=== PATIENT | female | born 1990 | race Two or more races ===

== ENCOUNTER 2017-09-12 18:48 | Emergency (ER) | payer SELFPAY ==
[~2017-09-12] VITALS: Ht 157.5 cm; Wt 115.7 kg
[~2017-09-12 18:48] MED LIST: CIPROFLOXACIN500 M2 ORAL; DIFLUCAN150 MG PO
[2017-09-12 19:40] VITALS: BP 102/70
[2017-09-12 20:32] LABS: BILIRUBIN, URINE NEGATIVE (NEGATIVE); COLOR,URINE PALE YELLOW; GLUCOSE, URINE (UA) NEGATIVE (NEGATIVE); KETONES,URINE 1+ (NEGATIVE); LEUKOCYTE ESTERASE ,URINE 3+ (NEGATIVE); NITRITE,URINE NEGATIVE (NEGATIVE); PH,URINE 6.5 (4.5-8.0); PROTEIN,URINE 1+ (NEGATIVE); UROBILINOGEN,URINE NORMAL MG/DL (0.0-1.0)
[2017-09-12 20:36] LABS: APPEARANCE,URINE SLIGHTLY CLOUDY
--- NOTE | 2017-09-12 20:41 | Emergency Room Report ---
History of Present Illness General Chief Complaint: General Complaint Source: Patient, Medical Record Present Illness HPI 26-year-old female presents to the emergency department complaining of 10 out of 10 in severity pelvic pain and tenderness with "something sticking out of her " patient states that a few weeks ago she went to an STD clinic and was tested and told she doesn't have anything. Patient denies fevers, chills, nausea or vomiting she denies . She denies vaginal discharge, vaginal bleeding or unilateral adnexal tenderness. Patient reports she has dysuria and denies hematuria, frequency or urgency. Patient reports that her pelvic area feels very "bloated". Denies constipation or diarrhea. She states that for the past 2 weeks she's been having dyspareunia to the point where she has to stop mid-activity. reports hx of G&C in the past. Denies vaginal lesions/ rashes. Denies CP, Palpitations, LOC, AMS, dizziness, Changes in Vision, Sensation, paresthesias, or a sudden severe headache. Allergies: Coded Allergies: AMOXICILLIN (Unverified Allergy, Unknown, 11/24/14) Patient History Past Medical History: see triage record Past Surgical History: none Pertinent Family History: none Last Menstrual Period: 06/15 Now: No Reviewed Nursing Documentation: PMH: Agreed; PSxH: Agreed Nursing Documentation-PMH Past Medical History: No History, Except For Hx Asthma: Yes Review of Systems All Other Systems: negative except mentioned in HPI Physical Exam Vital Signs Date Time Temp Pulse Resp B/P (MAP) Pulse Ox O2 Delivery O2 Flow Rate FiO2 09/12/17 18:52 98.0 96 20 94/69 95 Room Air 98.1 Sp02 EP Interpretation: reviewed, normal General Appearance: alert, GCS 15, non-toxic, moderate distress Head: normocephalic, atraumatic ENT: hearing grossly normal, normal voice Neck: full range of motion Respiratory: lungs clear, normal breath sounds, speaking full sentences Cardiovascular #1: regular rate, rhythm Gastrointestinal: normal bowel sounds, non tender, soft Rectal: deferred Genitourinary: normal inspection, no CVA tenderness, ext genitalia/vag normal - no lesions, other - prominently visualized intrapelvic organs suspect cervix on exam with out need of insertion of speculum. severe tenderness on exam.Thin white watery vaginal discharge is noted. Speculum is deferred due to pain. Musculoskeletal: back normal, gait/station normal, normal range of motion, non- tender Neurologic: alert, oriented x3, responsive, motor strength/tone normal, sensory intact, speech normal, grossly normal Psychiatric: judgement/insight normal Skin: normal color, no rash, warm/dry, well hydrated Medical Decision Making PA Attestation Dr. Kang is my supervising Physician whom patient management has been discussed with. Diagnostic Impression: Primary Impression: Pelvic pain Additional Impressions: Cervical prolapse Trichomonal leukorrhea vaginalis Bacterial vaginitis ER Course 26-year-old female presents to the emergency department complaining of 10 out of 10 in severity pelvic pain and tenderness with "something sticking out of her " patient states that a few weeks ago she went to an STD clinic and was tested and told she doesn't have anything. Patient denies fevers, chills, nausea or vomiting she denies . She denies vaginal discharge, vaginal bleeding or unilateral adnexal tenderness. Patient reports she has dysuria and denies hematuria, frequency or urgency. Patient reports that her pelvic area feels very "bloated". Denies constipation or diarrhea. She states that for the past 2 weeks she's been having dyspareunia to the point where she has to stop mid-activity. reports hx of G&C in the past. Denies vaginal lesions/ rashes. Denies CP, Palpitations, LOC, AMS, dizziness, Changes in Vision, Sensation, paresthesias, or a sudden severe headache. Ddx considered but are not limited to prolapse uterus/cervix, PID, Bartholin's gland cyst, nabothian glances, STD or just to name a few. Vital signs: are WNL, pt. is afebrile H&PE are most consistent with cervical prolapse and possibly PID due to severe tenderness on exam.Thin white watery vaginal discharge is noted. ORDERS: -UA: Elevated inflammatory markers however few bacteria an equal amount squamous not indicating urinary infection at this time. I suspect that this elevation and inflammatory markers is due to the thin white discharge contamination that I noticed on physical exam. -Urine HCg: Negative -Wet Mount: Positive for clue cells, Trichomonas, and bacteria, no yeast ED INTERVENTIONS: -Oral pain medication -Diflucan 150 mg orally -Rocephin IM --- DATABASE TECHNICIAN consult. Dr. Lainez recommended OBGYN F/U outpatient, and treat for positives of wet mount, and cover for G&C. requested G&C Culture. So recommended prescription for Diflucan since she will be prescribed several antibiotics. DISCHARGE: At this time pt. is stable for d/c to home. Will provide printed patient care instructions, and any necessary prescriptions. Care plan and follow up instructions have been discussed with the patient prior to discharge. Labs Test 09/12/17 20:00 Urine Color Pale yellow Urine Appearance Slightly cloudy Urine pH 6.5 (4.5-8.0) Urine Specific [place] 1.010 (1.005-1.035) Urine Protein 1+ (NEGATIVE) Urine Glucose (UA) Negative (NEGATIVE) Urine Ketones 1+ (NEGATIVE) Urine Occult Blood 2+ (NEGATIVE) Urine Nitrite Negative (NEGATIVE) Urine Bilirubin Negative (NEGATIVE) Urine Urobilinogen Normal MG/DL (0.0-1.0) Urine Leukocyte Esterase 3+ (NEGATIVE) Urine RBC 2-4 /HPF (0 - 2) Urine WBC 5-10 /HPF (0 - 2) Urine Squamous Epithelial Cells Few /LPF (NONE/OCC) Urine Bacteria Few /HPF (NONE) Urine HCG, Qualitative Negative (NEGATIVE) Last Vital Signs Date Time Temp Pulse Resp B/P (MAP) Pulse Ox O2 Delivery O2 Flow Rate FiO2 09/12/17 19:40 98.2 82 18 102/70 97 Room Air 98.2 Disposition: HOME, SELF-CARE Condition: Serious Physician Consult: Dr. Lainez Scripts Fluconazole (FLUCONAZOLE) 100 Mg Tablet 100 MG ORAL DAILY for 2 Days, #2 TAB 0 Refills Prov: Jyoti Rodgers P.A. 09/12/17 Doxycycline Hyclate* (VIBRAMYCIN*) 100 Mg Capsule 100 MG ORAL EVERY 12 HOURS for 14 Days, #28 CAP 0 Refills Prov: Jyoti Rodgers P.A. 09/12/17 Metronidazole* (FLAGYL*) 500 Mg Tablet 500 MG ORAL BID for 7 Days, #14 TAB 0 Refills Prov: Jyoti Rodgers P.A. 09/12/17 Referrals: NOT CHOSEN [facility]/,REFERRING (PCP) JEN LAINEZ Patient Instructions: Bacterial Vaginosis, [id number], Pelvic Organ Prolapse , Trichomonas Test Additional Instructions: Take medications as directed. Follow up with a OBGYN within 3 days, even if your symptoms have resolved. Return sooner to ED if new symptoms occur, or current symptoms become worse. - Please note that this Emergency Department Report was dictated using [employer] supervisor technology software, occasionally this can lead to erroneous entry secondary to interpretation by the dictation equipment. Jyoti Rodgers Sep 12, 2017 20:41
[2017-09-12 20:45] VITALS: BP 107/76
[2017-09-12] MEDS ORDERED: oxyCODONE HCL/Acetaminophen 5/325mg ORAL ONE (21:00)
[2017-09-12] MEDS ORDERED: VIBRAMYCIN100 MG ORAL (21:22)
[2017-09-12] MEDS ORDERED: FLUCONAZOLE100 MG ORAL (21:22)
[2017-09-12] MEDS ORDERED: METRONIDAZOLE500 MG ORAL (21:22)
[2017-09-12] MEDS ORDERED: Lidocaine 1% MPF 10mg/ml 5ml INJ ONE (21:30)
[2017-09-12] MEDS ORDERED: Fluconazole 100mg tab ORAL ONE (21:30)
[2017-09-12 21:45] VITALS: BP 107/76
== END 2017-09-12 21:45 | disposition home or self-care (01) ==
LOC: EMR 19:16
DX: R10.2 Pelvic and perineal pain (principal); N81.2 Incomplete uterovaginal prolapse; N89.8 Other specified noninflammatory disorders of vagina; N76.0 Acute vaginitis; B96.89 Other specified bacterial agents as the cause of diseases classified elsewhere; Z88.0 Allergy status to penicillin
CPT/HCPCS: 81003; 81025; 87210; 96372; 99284; J0696

== ENCOUNTER 2018-02-13 08:29 | Emergency (ER) | payer SELFPAY ==
[~2018-02-13] VITALS: Ht 157.5 cm; Wt 115.2 kg
[~2018-02-13 08:29] MED LIST changes: +FLUCONAZOLE100 MG ORAL; +METRONIDAZOLE500 MG ORAL; +VIBRAMYCIN100 MG ORAL
[2018-02-13] MEDS ORDERED: Albuterol ud Inhalation HHN ONE (09:15)
[2018-02-13 09:30] LABS: APPEARANCE,URINE CLOUDY; BILIRUBIN, URINE NEGATIVE (NEGATIVE); GLUCOSE, URINE (UA) NEGATIVE (NEGATIVE); KETONES,URINE NEGATIVE (NEGATIVE); LEUKOCYTE ESTERASE ,URINE 3+ (NEGATIVE); NITRITE,URINE NEGATIVE (NEGATIVE); PH,URINE 5 (4.5-8.0); PROTEIN,URINE 1+ (NEGATIVE); UROBILINOGEN,URINE NORMAL MG/DL (0.0-1.0)
[2018-02-13 09:35] LABS: COLOR,URINE YELLOW
--- NOTE | 2018-02-13 09:56 | Emergency Room Report ---
History of Present Illness General Chief Complaint: Flu Like Symptoms Source: Patient Present Illness HPI This patient has a history of asthma. She states that when she gets respiratory illnesses she gets asthma exacerbations. She states that for the past 3 days she has had bodyaches, chills, cough and shortness of breath. She denies abdominal pain. She has had diarrhea. She states that she hasn't been worked in 3 days. She states she feels terrible. She has no other complaints. Allergies: Coded Allergies: AMOXICILLIN (Unverified Allergy, Unknown, 11/24/14) CEFACLOR (Verified Allergy, Unknown, 02/13/18) Patient History Past Medical History: see triage record, asthma Social History: Denies: smoking, alcohol use, drug use Last Menstrual Period: 01/23/2018 Now: No : 0 Para: 0 Reviewed Nursing Documentation: PMH: Agreed; PSxH: Agreed Nursing Documentation-PMH Past Medical History: No History, Except For Hx Asthma: Yes Review of Systems All Other Systems: negative except mentioned in HPI Physical Exam Vital Signs Date Time Temp Pulse Resp B/P (MAP) Pulse Ox O2 Delivery O2 Flow Rate FiO2 02/13/18 08:36 98.7 92 18 118/66 98 Room Air 98.8 02/13/18 09:31 21 Sp02 EP Interpretation: reviewed, normal General Appearance: no apparent distress, alert, GCS 15, non-toxic Head: normocephalic, atraumatic Eyes: bilateral eye normal inspection, bilateral eye PERRL ENT: hearing grossly normal, normal pharynx, no angioedema, normal voice Neck: full range of motion, supple/symm/no masses Respiratory: chest non-tender, no respiratory distress, no retraction, no accessory muscle use, speaking full sentences, wheezing - mild expiratory wheezes. Cardiovascular #1: regular rate, rhythm, no edema Rectal: deferred Musculoskeletal: back normal, gait/station normal, normal range of motion, non- tender Neurologic: alert, oriented x3, responsive, motor strength/tone normal, sensory intact, speech normal Psychiatric: judgement/insight normal, memory normal, mood/affect normal, no suicidal/homicidal ideation Skin: normal color, no rash, warm/dry, well hydrated Medical Decision Making Diagnostic Impression: Primary Impression: URI (upper respiratory infection) Additional Impressions: Asthma exacerbation UTI (urinary tract infection) ER Course This patient has a clinical presentation consistent with asthma exacerbation. Patient has a history of asthma and has wheezing on physical exam. The patient was given albuterol and Atrovent nebulizer treatments. The patient was also given prednisone orally. The patient had significant improvement in subjective shortness of breath. The patient's lung exam improved significantly. The patient's urinalysis was also positive for infection. Also of concern, was the identification of Trichomonas in the urine. Given the identification of Trichomonas, this patient is high risk for gonorrhea or chlamydia as a source of her infection. I decided to treat this patient presumptively with Rocephin, azithromycin and Flagyl. I will go ahead and treat her with a course of Macrobid also for a regular urinary tract infection. The patient was educated that she could be reinfected if she continues at the same partner. She is also instructed to obtain testing for HIV and syphilis at an outpatient clinic. The patient was given close return precautions and followup instructions. Laboratory Tests Test 02/13/18 09:15 Urine Color Yellow Urine Appearance Cloudy Urine pH 5 (4.5-8.0) Urine Specific [place] 1.015 (1.005-1.035) Urine Protein 1+ (NEGATIVE) H Urine Glucose (UA) Negative (NEGATIVE) Urine Ketones Negative (NEGATIVE) Urine Blood 1+ (NEGATIVE) H Urine Nitrite Negative (NEGATIVE) Urine Bilirubin Negative (NEGATIVE) Urine Urobilinogen Normal MG/DL (0.0-1.0) Urine Leukocyte Esterase 3+ (NEGATIVE) H Urine RBC 5-10 /HPF (0 - 2) H Urine WBC 30-40 /HPF (0 - 2) H Urine Squamous Epithelial Cells Moderate /LPF (NONE/OCC) H Urine Amorphous Sediment Few /LPF (NONE) H Urine Bacteria Moderate /HPF (NONE) H Urine Mucus Few /LPF (NONE/OCC) H Urine Trichomonas Few /HPF (NONE) H Urine HCG, Qualitative Negative (NEGATIVE) Chest X-Ray Diagnostic Results Chest X-Ray Diagnostic Results : Chest X-Ray Ordered: Yes # of Views/Limited/Complete: 1 View Indication: Other - cough EP Interpretation: No Interpretation: no consolidation, no effusion, no pneumothorax, no acute cardiopulmonary disease Impression: No acute disease Electronically Signed by: Sheeba Last Vital Signs Date Time Temp Pulse Resp B/P (MAP) Pulse Ox O2 Delivery O2 Flow Rate FiO2 9/18/18 09:41 85 20 100 Room Air 21 02/13/18 08:36 98.7 118/66 98.8 Status: improved Disposition: HOME, SELF-CARE Condition: Improved Referrals: NOT CHOSEN [facility]/,REFERRING (PCP) Fadumo Centeno DO Feb 13, 2018 09:56
[2018-02-13] MEDS ORDERED: Azithromycin 250mg tab ORAL ONE (10:00)
[2018-02-13] MEDS ORDERED: metroNIDAZOLE 500mg tab ORAL ONE (10:00)
[2018-02-13] MEDS ORDERED: FLUCONAZOLE100 MG ORAL (10:02)
[2018-02-13] MEDS ORDERED: DOXYCYCLINE MO100 MG ORAL (10:02)
[2018-02-13] MEDS ORDERED: NITROFURANTOIN100 M2 ORAL (10:02)
[2018-02-13 10:21] VITALS: BP 120/69
[2018-02-13 10:31] VITALS: BP 120/69
--- NOTE | 2018-02-13 10:59 | Diagnostic Imaging Report ---
. Indication: Cough Technique: One view of the chest Comparison: none Findings: Body habitus limits evaluation. The heart is borderline enlarged. Inspiration is suboptimal. Lungs and pleural spaces are clear. Impression: No acute process Apparent cardiomegaly, probably on the basis of suboptimal inspiration and patient body habitus, but true cardiac enlargement not completely excludable. Correlate with clinical history and findings
== END 2018-02-13 11:02 | disposition home or self-care (01) ==
LOC: EMR 08:56
DX: J45.901 Unspecified asthma with (acute) exacerbation (principal); N39.0 Urinary tract infection, site not specified; J06.9 Acute upper respiratory infection, unspecified; Z88.1 Allergy status to other antibiotic agents; Z88.8 Allergy status to other drugs, medicaments and biological substances
CPT/HCPCS: 71045; 81003; 81025; 87086; 94640; 99284; J7512

== ENCOUNTER 2018-04-09 19:15 | Emergency (ER) | payer SELFPAY ==
[~2018-04-09] VITALS: Ht 162.6 cm; Wt 115.2 kg
[~2018-04-09 19:15] MED LIST changes: +DOXYCYCLINE MO100 MG ORAL; +NITROFURANTOIN100 M2 ORAL
[2018-04-09 20:00] LABS: APPEARANCE,URINE CLEAR; BILIRUBIN, URINE NEGATIVE (NEGATIVE); COLOR,URINE PALE YELLOW; GLUCOSE, URINE (UA) NEGATIVE (NEGATIVE); KETONES,URINE NEGATIVE (NEGATIVE); LEUKOCYTE ESTERASE ,URINE 1+ (NEGATIVE); NITRITE,URINE NEGATIVE (NEGATIVE); PH,URINE 7 (4.5-8.0); PROTEIN,URINE NEGATIVE (NEGATIVE); UROBILINOGEN,URINE NORMAL MG/DL (0.0-1.0)
[2018-04-09 20:09] VITALS: BP 114/77
[2018-04-09] MEDS ORDERED: Clindamycin 150mg cap ORAL STA (22:08)
--- NOTE | 2018-04-09 22:08 | Emergency Room Report ---
History of Present Illness General Chief Complaint: Female Urogenital Problems Source: Patient Present Illness HPI Patient with vaginal discharge. She believes this is trichomonas - "again". She was treated for trich with Rx for flagyl which she could not fill until being seen at another clinic. Now recently finished course and has similar symptoms of itchiness, d/c and discomfort rated 8/10. No dysuria. Discomfort localized. No meds taken other than Flagyl. Partner was also treated. LNMP 03/29. No NVD, abdominal pain, flank pain. No URI sy, rashes. Allergies: Coded Allergies: AMOXICILLIN (Unverified Allergy, Unknown, 11/24/14) CEFACLOR (Verified Allergy, Unknown, 02/13/18) Patient History Past Medical History: see triage record Social History: Reports: smoking Social History Narrative stable relationship Last Menstrual Period: 03/29/18 Reviewed Nursing Documentation: PMH: Agreed; PSxH: Agreed Nursing Documentation-PMH Past Medical History: No History, Except For Hx Asthma: Yes Review of Systems All Other Systems: negative except mentioned in HPI Physical Exam Vital Signs Date Time Temp Pulse Resp B/P (MAP) Pulse Ox O2 Delivery O2 Flow Rate FiO2 04/09/18 19:27 99.0 89 16 112/79 98 Room Air Sp02 EP Interpretation: reviewed, normal General Appearance: well appearing, no apparent distress Head: normocephalic, atraumatic Eyes: bilateral eye normal inspection, bilateral eye PERRL ENT: hearing grossly normal, normal voice Neck: full range of motion, supple Respiratory: no respiratory distress, speaking full sentences Gastrointestinal: normal inspection, normal bowel sounds, non tender, soft, overweight Genitourinary: no CVA tenderness, cervix normal, urethra normal, other - exophytic tissue (hymen) Musculoskeletal: back normal, gait/station normal, normal range of motion Neurologic: alert, oriented x3, normal gait, grossly normal Psychiatric: mood/affect normal Skin: no rash Medical Decision Making Diagnostic Impression: Primary Impression: Bacterial vaginosis ER Course Patient with vaginal discharge. DDX: trich, BV, yeast amongst others. Need to exclude UTI. Wet mount with clue cells, no trich or yeast. Discussed findings and treatment plan. Patient stable for outpatient observation and treatment. Laboratory Tests Test 04/09/18 19:49 Urine Color Pale yellow Urine Appearance Clear Urine pH 7 (4.5-8.0) Urine Specific [place] 1.010 (1.005-1.035) Urine Protein Negative (NEGATIVE) Urine Glucose (UA) Negative (NEGATIVE) Urine Ketones Negative (NEGATIVE) Urine Blood Negative (NEGATIVE) Urine Nitrite Negative (NEGATIVE) Urine Bilirubin Negative (NEGATIVE) Urine Urobilinogen Normal MG/DL (0.0-1.0) Urine Leukocyte Esterase 1+ (NEGATIVE) H Urine RBC 0-2 /HPF (0 - 2) Urine WBC 2-4 /HPF (0 - 2) Urine Squamous Epithelial Cells Few /LPF (NONE/OCC) Urine Bacteria Few /HPF (NONE) Urine HCG, Qualitative Negative (NEGATIVE) Microbiology Date/Time Source Procedure Growth Status 04/09/18 20:40 Vaginal Wet Prep - Final Complete Last Vital Signs Date Time Temp Pulse Resp B/P (MAP) Pulse Ox O2 Delivery O2 Flow Rate FiO2 04/09/18 22:24 98.7 79 16 114/77 98 Room Air Status: improved Disposition: HOME, SELF-CARE Condition: Improved Scripts Clindamycin Hcl (CLINDAMYCIN HCL) 300 Mg Capsule 300 MG ORAL BID, #14 CAP Prov: Ata Jefferson MD 04/09/18 Ata Jefferson MD Apr 09, 2018 22:08
[2018-04-09] MEDS ORDERED: CLINDAMYCIN HC300 MG ORAL (22:10)
[2018-04-09 22:24] VITALS: BP_SYST 114; BP_SYST 118; BP_DIAS 74; BP_DIAS 77
== END 2018-04-09 22:22 | disposition home or self-care (01) ==
LOC: EMR 19:49
DX: N76.0 Acute vaginitis (principal); B96.89 Other specified bacterial agents as the cause of diseases classified elsewhere; J45.909 Unspecified asthma, uncomplicated; Z88.0 Allergy status to penicillin
CPT/HCPCS: 81003; 81025; 87210; 99283

== ENCOUNTER 2018-09-04 03:19 | Emergency (ER) | payer OTHER ==
[~2018-09-04] VITALS: Ht 157.5 cm; Wt 117.9 kg
[~2018-09-04 03:19] MED LIST changes: +CLINDAMYCIN HC300 MG ORAL
[2018-09-04] MEDS ORDERED: NKM (03:28)
--- NOTE | 2018-09-04 03:31 | NUR ---
ED Nurse Note: Received with mild distress. Lung sounds clear and equal.
[2018-09-04 03:35] VITALS: BP 104/76
[2018-09-04] MEDS ORDERED: ZITHROMAX250 MG ORAL (03:50)
[2018-09-04] MEDS ORDERED: ALBUTEROL SULF8.5 GM INH (03:50)
--- NOTE | 2018-09-04 03:50 | Emergency Room Report ---
History of Present Illness General Chief Complaint: Fever Source: Patient Present Illness HPI Is a 27-year-old female with history of asthma. She presents with chief complaint of fever and sinus pain. Onset for last 2 days. No nausea no vomiting. Body aches. Which are 101.7 at home. Took a couple of Advil before coming. No cough or congestion. No urinary complaint. Allergies: Coded Allergies: AMOXICILLIN (Unverified Allergy, Unknown, 11/24/14) CEFACLOR (Verified Allergy, Unknown, 02/13/18) Patient History Past Medical History: see triage record, old chart reviewed Past Surgical History: none Pertinent Family History: none Social History: Denies: smoking Last Menstrual Period: 08/15/18 Now: No Immunizations: other Reviewed Nursing Documentation: PMH: Agreed; PSxH: Agreed Nursing Documentation-PMH Hx Asthma: Yes Review of Systems Constitutional: Reports: fever, malaise Eye: Denies: eye pain, blurred vision ENT: Denies: ear pain, nose congestion, throat swelling Respiratory: Denies: cough, shortness of breath Cardiovascular: Denies: chest pain, palpitations Gastrointestinal: Denies: abdominal pain, diarrhea, nausea, vomiting Musculoskeletal: Denies: back pain, joint pain Skin: Denies: rash Neurological: Denies: headache, numbness Endocrine: Denies: increased thirst, increased urine Hematologic/Lymphatic: Denies: easy bruising All Other Systems: negative except mentioned in HPI Physical Exam Vital Signs Date Time Temp Pulse Resp B/P (MAP) Pulse Ox O2 Delivery O2 Flow Rate FiO2 09/04/18 03:24 99.0 96 16 104/76 95 Room Air vitals unremarkable Sp02 EP Interpretation: reviewed, normal General Appearance: well appearing, no apparent distress, alert Head: normocephalic, atraumatic Eyes: bilateral eye PERRL, bilateral eye EOMI ENT: hearing grossly normal, normal pharynx, other - Maxillary sinus tenderness Neck: full range of motion, supple, no meningismus Respiratory: chest non-tender, lungs clear, normal breath sounds Cardiovascular #1: regular rate, rhythm, no murmur Gastrointestinal: normal bowel sounds, non tender, no mass, no organomegaly, no bruit, non-distended Musculoskeletal: back normal, gait/station normal, normal range of motion Psychiatric: mood/affect normal Skin: warm/dry Medical Decision Making Diagnostic Impression: Primary Impression: Sinusitis, acute maxillary Qualified Codes: J01.00 - Acute maxillary sinusitis, unspecified Additional Impression: Fever Qualified Codes: R50.9 - Fever, unspecified ER Course She with fever and sinus tenderness. This is most likely viral in nature. Put her on antibiotics because of the tenderness. No risk factors to indicate this is fungal infection. Lungs are otherwise clear. No wheezing. She needs refill on her albuterol. She looks well. No evidence of any sepsis, meningitis , pneumonia to name a few. I doubt this is influenza. Last Vital Signs Date Time Temp Pulse Resp B/P (MAP) Pulse Ox O2 Delivery O2 Flow Rate FiO2 09/04/18 03:35 99.0 16 104/76 95 Room Air 09/04/18 03:32 96 Status: improved Disposition: HOME, SELF-CARE Condition: Stable Scripts Azithromycin* (ZITHROMAX*) 250 Mg Tablet 250 MG ORAL DAILY, #6 TAB 0 Refills Take two tables once daily for 1 day, then one tablet once daily for 4 days. Prov: Zander Pinzon MD 09/04/18 Albuterol Sulfate* (ALBUTEROL SULFATE MDI*) 8.5 Gm Hfa.aer.ad 2 PUFF INH Q4H PRN for cough/wheezing, #1 EA 0 Refills Prov: Zander Pinzon MD 09/04/18 Referrals: [facility],REFERRING (PCP) Additional Instructions: Follow-up with your doctor in 7 days. Continue with ibuprofen for fever and pain. Return if worse. Zander Pinzon MD Sep 04, 2018 03:50
[2018-09-04 03:56] VITALS: BP 104/76
[2018-09-05] MEDS ORDERED: IBUPROFEN600 MG ORAL (15:59)
[2018-09-05] MEDS ORDERED: ONDANSETRON ODT4 MG BC (15:59)
== END 2018-09-04 03:57 | disposition home or self-care (01) ==
LOC: EMR 03:42
DX: J01.00 Acute maxillary sinusitis, unspecified (principal); R50.9 Fever, unspecified; Z88.0 Allergy status to penicillin; Z88.8 Allergy status to other drugs, medicaments and biological substances
CPT/HCPCS: 99282

== ENCOUNTER 2018-09-05 11:21 | Emergency (ER) | payer OTHER ==
[~2018-09-05] VITALS: Ht 157.5 cm; Wt 122.0 kg
[~2018-09-05 11:21] MED LIST changes: +ALBUTEROL SULF8.5 GM INH; +NKM; +ZITHROMAX250 MG ORAL
[2018-09-05 11:25] VITALS: BP 103/81
--- NOTE | 2018-09-05 11:32 | NUR ---
Note ping in EDM - 09/05/18 at 1135 by ANTONELLA ED Nurse Note: Patient walked into ED from home c/o fever. per patient she had 101.5F all night long. patient reports bodyaches, sweating, nausea, congestion for 4 days. patient denies any vomiting or diarrhea. patient is alert awake x4 ambulatory, patient's friend with him.
--- NOTE | 2018-09-05 11:32 | NUR ---
ED Nurse Note: Patient walked into ED from home c/o fever. per patient she had 101.5F all night long. patient reports bodyaches, sweating, nausea, congestion for 4 days. patient denies any vomiting or diarrhea. patient is alert awake x4 ambulatory, patient's friend with her at this time.
[2018-09-05] MEDS ORDERED: Metoclopramide 10mg/2ml Inj IVP ONE (12:15)
[2018-09-05] MEDS ORDERED: DiphenhydrAMINE 50mg/ml Inj IVP ONE (12:15)
--- NOTE | 2018-09-05 12:59 | NUR ---
ED Nurse Note: Pt could not provide urine due to dehydration. ERMD made aware.
[2018-09-05 13:11] LABS: BASOPHILS % (AUTO) 0.8 % (0.0-2.0); HEMATOCRIT 40.2 % (37.0-47.0); HEMOGLOBIN 13.1 G/DL (12.0-16.0); LYMPHOCYTES % (AUTO) 13.5 % (20.0-45.0); MEAN CORPUSCULAR VOLUME 77 FL (80-99); MONOCYTES % (AUTO) 8.8 % (1.0-10.0); NEUTROPHILS % (AUTO) 76.8 % (45.0-75.0); PLATELET COUNT 260 K/UL (150-450); RED BLOOD COUNT 5.25 M/UL (4.20-5.40); RED CELL DISTRIBUTION WIDTH 13.7 % (11.6-14.8)
[2018-09-05 13:16] LABS: INR 1.1 (0.9-1.1)
[2018-09-05 13:21] LABS: ANION GAP 14 mmol/L (5-15); BLOOD UREA NITROGEN 8 mg/dL (7-18); CALCIUM 8.9 MG/DL (8.5-10.1); CARBON DIOXIDE 25 MMOL/L (21-32); CHLORIDE 99 MMOL/L (98-107); CREATININE 0.8 MG/DL (0.55-1.30); POTASSIUM 3.8 MMOL/L (3.5-5.1); SODIUM 138 MMOL/L (136-145)
[2018-09-05 13:26] LABS: ALANINE AMINOTRANSFERASE 14 U/L (12-78); ALBUMIN 3.8 G/DL (3.4-5.0); ALBUMIN/GLOBULIN RATIO 0.8 (1.0-2.7); ALKALINE PHOSPHATASE 79 U/L (46-116); ASPARTATE AMINO TRANSFERASE 13 U/L (15-37); BILIRUBIN,TOTAL 0.4 MG/DL (0.2-1.0); CREATINE KINASE 51 U/L (26-308)
[2018-09-05 13:57] VITALS: BP 102/67
--- NOTE | 2018-09-05 14:41 | NUR ---
ED Nurse Note: 2nd urine sent to lab
[2018-09-05 14:46] LABS: APPEARANCE,URINE CLEAR; BILIRUBIN, URINE NEGATIVE (NEGATIVE); COLOR,URINE PALE YELLOW; GLUCOSE, URINE (UA) NEGATIVE (NEGATIVE); KETONES,URINE NEGATIVE (NEGATIVE); LEUKOCYTE ESTERASE ,URINE 1+ (NEGATIVE); NITRITE,URINE NEGATIVE (NEGATIVE); PH,URINE 5 (4.5-8.0); PROTEIN,URINE NEGATIVE (NEGATIVE); UROBILINOGEN,URINE NORMAL MG/DL (0.0-1.0)
--- NOTE | 2018-09-05 15:26 | Emergency Room Report ---
History of Present Illness General Chief Complaint: Flu Like Symptoms Source: Patient Present Illness HPI Patient presents after being seen steam shovelman on the for sinusitis. She was started on azithromycin at that time. She started having vomiting and diarrhea this persisted. She also has muscle aches at this time. She's been unable to keep down fluids. She doesn't believe she is at this time. No flu vaccination. She denies wheezes. She feels weak when she stands up and feels dehydrated. No rashes. The sinus pain is improved somewhat. Denies neck stiffness. She does have lower back pain. The pain is rated 10/10 and generalized but slightly more in her lower back. The diarrhea is loose and brown in color without blood. She denies vaginal discharge. Her temperature was 101.5 last night. She took Tylenol and had some improvement. The fever persisted to today. The family history of meningitis and she is concerned about this. Allergies: Coded Allergies: AMOXICILLIN (Unverified Allergy, Unknown, 09/05/18) CEFACLOR (Verified Allergy, Unknown, 09/05/18) Patient History Past Medical History: see triage record, old chart reviewed Social History: Denies: smoking, alcohol use, drug use Social History Narrative With significant other Last Menstrual Period: 08/15/18 Now: No Reviewed Nursing Documentation: PMH: Agreed; PSxH: Agreed Nursing Documentation-PMH Past Medical History: No History, Except For Hx Asthma: Yes Review of Systems All Other Systems: negative except mentioned in HPI Physical Exam Vital Signs Date Time Temp Pulse Resp B/P (MAP) Pulse Ox O2 Delivery O2 Flow Rate FiO2 09/05/18 11:25 99.1 89 18 103/81 98 Room Air Sp02 EP Interpretation: reviewed, normal General Appearance: well appearing, no apparent distress, GCS 15 Head: normocephalic, atraumatic Eyes: bilateral eye normal inspection, bilateral eye PERRL, bilateral eye EOMI ENT: normal pharynx, normal voice, moist mucus membranes, other - Minimal maxillary tenderness Neck: full range of motion, supple, no meningismus Respiratory: lungs clear, normal breath sounds Cardiovascular #1: regular rate, rhythm Cardiovascular #2: 2+ radial (R) Gastrointestinal: normal inspection, normal bowel sounds, non tender, no mass, non-distended Genitourinary: no CVA tenderness Musculoskeletal: back normal, gait/station normal, normal range of motion Neurologic: alert, oriented x3, grossly normal Psychiatric: depressed affect Skin: normal inspection, warm/dry, other - Tattoos Medical Decision Making Diagnostic Impression: Primary Impression: Vomiting and diarrhea Additional Impression: Partially treated sinusitis ER Course Patient presents with nausea vomiting muscle aches and diarrhea while being treated for sinusitis. Differential includes adverse reaction days azithromycin , partially treated sinusitis, viral gastroenteritis, bacterial gastroenteritis amongst others. Patient will be evaluated with labs. Patient will receive IV hydration, Reglan, Benadryl. Patient will be checked for influenza. There is no evidence of meningitis at this time. Labs with minimal leukocytosis. Electrolytes normal. Influenza negative. Normal lactic acid. Patient improved with hydration and treatment. Discussed treatment plan with patient. She understands that she is being observed closely as an outpatient and needs to return if she is not doing well. Patient stable for outpatient observation and treatment Laboratory Tests Test 09/05/18 13:00 09/05/18 14:35 White Blood Count 11.0 K/UL (4.8-10.8) H Red Blood Count 5.25 M/UL (4.20-5.40) Hemoglobin 13.1 G/DL (12.0-16.0) Hematocrit 40.2 % (37.0-47.0) Mean Corpuscular Volume 77 FL (80-99) L Mean Corpuscular Hemoglobin 25.0 PG (27.0-31.0) L Mean Corpuscular Hemoglobin Concent 32.6 G/DL (32.0-36.0) Red Cell Distribution Width 13.7 % (11.6-14.8) Platelet Count 260 K/UL (150-450) Mean Platelet Volume 8.6 FL (6.5-10.1) Neutrophils (%) (Auto) 76.8 % (45.0-75.0) H Lymphocytes (%) (Auto) 13.5 % (20.0-45.0) L Monocytes (%) (Auto) 8.8 % (1.0-10.0) Eosinophils (%) (Auto) 0.0 % (0.0-3.0) Basophils (%) (Auto) 0.8 % (0.0-2.0) Prothrombin Time 11.7 SEC (9.30-11.50) H Prothrombin Time INR 1.1 (0.9-1.1) PTT 29 SEC (23-33) Sodium Level 138 MMOL/L (136-145) Potassium Level 3.8 MMOL/L (3.5-5.1) Chloride Level 99 MMOL/L (98-107) Carbon Dioxide Level 25 MMOL/L (21-32) Anion Gap 14 mmol/L (5-15) Blood Urea Nitrogen 8 mg/dL (7-18) Creatinine 0.8 MG/DL (0.55-1.30) Estimate Glomerular Filtration Rate > 60 mL/min (>60) Glucose Level 98 MG/DL (74-106) Lactic Acid Level 1.10 mmol/L (0.4-2.0) Calcium Level 8.9 MG/DL (8.5-10.1) Total Bilirubin 0.4 MG/DL (0.2-1.0) Aspartate Amino Transferase (AST) 13 U/L (15-37) L Alanine Aminotransferase (ALT) 14 U/L (12-78) Alkaline Phosphatase 79 U/L (46-116) Total Creatine Kinase 51 U/L (26-308) Total Protein 8.6 G/DL (6.4-8.2) H Albumin 3.8 G/DL (3.4-5.0) Globulin 4.8 g/dL Albumin/Globulin Ratio 0.8 (1.0-2.7) L Human Chorionic Gonadotropin, Qual Negative (NEGATIVE) Urine Color Pale yellow Urine Appearance Clear Urine pH 5 (4.5-8.0) Urine Specific [place] 1.005 (1.005-1.035) Urine Protein Negative (NEGATIVE) Urine Glucose (UA) Negative (NEGATIVE) Urine Ketones Negative (NEGATIVE) Urine Blood Negative (NEGATIVE) Urine Nitrite Negative (NEGATIVE) Urine Bilirubin Negative (NEGATIVE) Urine Urobilinogen Normal MG/DL (0.0-1.0) Urine Leukocyte Esterase 1+ (NEGATIVE) H Urine RBC 0 /HPF (0 - 2) Urine WBC 2-4 /HPF (0 - 2) Urine Squamous Epithelial Cells Few /LPF (NONE/OCC) Urine Bacteria Occasional /HPF (NONE) Microbiology Date/Time Source Procedure Growth Status 09/05/18 13:00 Nasal Nares Influenza Types A,B Antigen (DARRIUS) - Final Complete Last Vital Signs Date Time Temp Pulse Resp B/P (MAP) Pulse Ox O2 Delivery O2 Flow Rate FiO2 09/05/18 16:14 98.1 89 14 102/67 98 Room Air 84 Status: improved Disposition: HOME, SELF-CARE Condition: Improved Scripts Ibuprofen* (MOTRIN*) 600 Mg Tablet 600 MG ORAL Q6H PRN for For Pain, #16 TAB Prov: Ata Jefferson MD 09/05/18 Ondansetron Odt* (ZOFRAN ODT*) 4 Mg Tab.rapdis 4 MG BC EVERY 8 HOURS, #6 TAB 1 Refill Prov: Ata Jefferson MD 09/05/18 Ata Jefferson MD Sep 05, 2018 15:26
[2018-09-05] MEDS ORDERED: ONDANSETRON ODT4 MG BC (15:59)
[2018-09-05] MEDS ORDERED: IBUPROFEN600 MG ORAL (15:59)
[2018-09-05 16:14] VITALS: BP 102/67
--- NOTE | 2018-09-05 16:14 | NUR ---
ER DISCHARGE NOTE: Patient is cleared to be discharged per ERMD, pt is aox4, on room air, with stable vital signs. pt was given dc and prescription instructions, pt was able to verbalize understanding, pt id band and iv site removed without complications. pt is able to ambulate with steady gait with her friend at bedside pt took all belongings.
[2018-09-06] MEDS ORDERED: LEVAQUIN750 MG ORAL (20:37)
== END 2018-09-05 16:08 | disposition home or self-care (01) ==
LOC: EMR 12:03
DX: R11.10 Vomiting, unspecified (principal); R19.7 Diarrhea, unspecified; J32.9 Chronic sinusitis, unspecified; D72.829 Elevated white blood cell count, unspecified; Z88.8 Allergy status to other drugs, medicaments and biological substances; M54.5 Low back pain
CPT/HCPCS: 36415; 71045; 80053; 81003; 82550; 83605; 84703; 85025; 85610; 85730; 86710; 96361; 96374; 96375; 99284; J1200; J2765

== ENCOUNTER 2018-09-06 18:54 | Emergency (ER) | payer OTHER ==
[~2018-09-06] VITALS: Ht 157.5 cm; Wt 121.6 kg
[~2018-09-06 18:54] MED LIST changes: +IBUPROFEN600 MG ORAL; +ONDANSETRON ODT4 MG BC
[2018-09-06 19:20] VITALS: BP 100/76
--- NOTE | 2018-09-06 19:20 | NUR ---
ED Nurse Note: Patient walked in from home c/o sore throat 02/05. Per patient she was here at Monday and ER MD preskribed her Azythromycin. Per patient she had no idea that she has allergy for that medication. Patient still have severe pain in her sinuses. AAO x4, skin is dry, intact.
--- NOTE | 2018-09-06 19:29 | Emergency Room Report ---
History of Present Illness General Chief Complaint: General Complaint Source: Patient Present Illness HPI 27-year-old female presents to the emergency department requesting alternative antibiotic she states that the antibiotic she is previously prescribed is making her feel ill and upsetting her stomach. Patient was prescribed azithromycin being treated for sinusitis with known history of allergy to amoxicillin. Patient states she's been having body aches, fevers, chills and episodes of vomiting. Denies hx of immune compromise or rashes. she denies headache, neck pain/stiffness, photophobia. Increased fatigue she states that she was for influenza which was negative yesterday. Allergies: Coded Allergies: AMOXICILLIN (Unverified Allergy, Unknown, 09/05/18) CEFACLOR (Verified Allergy, Unknown, 09/05/18) Patient History Past Medical History: see triage record Past Surgical History: none Pertinent Family History: none Last Menstrual Period: 3-20 Now: No Reviewed Nursing Documentation: PMH: Agreed; PSxH: Agreed Nursing Documentation-PMH Hx Asthma: Yes Review of Systems All Other Systems: negative except mentioned in HPI Physical Exam Vital Signs Date Time Temp Pulse Resp B/P (MAP) Pulse Ox O2 Delivery O2 Flow Rate FiO2 09/06/18 19:01 100.2 103 20 100/76 98 Room Air Sp02 EP Interpretation: reviewed, normal General Appearance: alert, GCS 15, non-toxic, mild distress Head: normocephalic, atraumatic Eyes: bilateral eye normal inspection, bilateral eye PERRL ENT: hearing grossly normal, normal voice, TMs + canals normal, uvula midline, moist mucus membranes, nasal congestion, pharyngeal erythema, other - TTP over the maxillary sinuses bilaterally, no rashes. Neck: full range of motion, no meningismus Respiratory: chest non-tender, lungs clear, normal breath sounds, no rhonchi, no wheezing, speaking full sentences Cardiovascular #1: regular rate, rhythm Gastrointestinal: normal bowel sounds, non tender, soft, non-distended, no guarding Genitourinary: normal inspection, no CVA tenderness Musculoskeletal: back normal, gait/station normal, normal range of motion, non- tender Neurologic: alert, oriented x3, responsive, motor strength/tone normal, sensory intact, speech normal, grossly normal Psychiatric: judgement/insight normal Skin: normal color, no rash, warm/dry, well hydrated Lymphatic: no adenopathy Medical Decision Making PA Attestation Dr. Vega is my supervising Physician whom patient management has been discussed with. Diagnostic Impression: Primary Impression: Sinusitis Qualified Codes: J01.90 - Acute sinusitis, unspecified Additional Impression: Fever Qualified Codes: R50.9 - Fever, unspecified ER Course 27-year-old female presents to the emergency department requesting alternative antibiotic she states that the antibiotic she is previously prescribed is making her feel ill and upsetting her stomach. Patient was prescribed azithromycin being treated for sinusitis with known history of allergy to amoxicillin. Patient states she's been having body aches, fevers, chills and episodes of vomiting. Denies hx of immune compromise or rashes. she denies headache, neck pain/stiffness, photophobia. Increased fatigue she states that she was for influenza which was negative yesterday. Ddx considered but are not limited to URI, pneumonia, PE, strep pharyngitis, meningitis, influenza, OM/OE just to name a few. Vital signs: temp of 100.2, the remaining VS are WNL H&PE are most consistent with Viral Syndrome suspicious for Influenza will treat clinically - no meningeal signs, Lungs are clear and oropharynx is not involved. TTP over the maxillary sinuses bilaterally, no rashes. ORDERS: none required at this time, the diagnosis is clinical ED INTERVENTIONS: -Levaquin and IBU 600 --PT. EDUCATION: --I discussed with this patient that I will be prescribing Tamiflu which is an antiviral. This medication is not always covered by insurance and is not always available at pharmacies. I educated patient that this medication has been shown to reduce symptoms by 1 day, and if unable to obtain there is no alternative, and to continue conservative treatment. DISCHARGE: At this time pt. is stable for d/c to home. Will provide printed patient care instructions, and any necessary prescriptions. Care plan and follow up instructions have been discussed with the patient prior to discharge. Last Vital Signs Date Time Temp Pulse Resp B/P (MAP) Pulse Ox O2 Delivery O2 Flow Rate FiO2 09/06/18 19:01 100.2 103 20 100/76 98 Room Air Disposition: HOME, SELF-CARE Condition: Stable Scripts Levofloxacin* (LEVAQUIN*) 750 Mg Tablet 750 MG ORAL DAILY for 5 Days, #5 TAB Prov: Jyoti Rodgers 09/06/18 Patient Instructions: Fever, Adult, [id number] Additional Instructions: Take medications as directed. Follow up with a Primary Care Provider in 3-5 days, even if your symptoms have resolved. --Please review list of primary care clinics, if you do not already have a primary care provider Return sooner to ED if new symptoms occur, or current symptoms become worse. - Please note that this Emergency Department Report was dictated using [employer]ber[employer] shop specialist technology software, occasionally this can lead to erroneous entry secondary to interpretation by the dictation equipment. Jyoti Rodgers Sep 06, 2018 19:29
[2018-09-06] MEDS ORDERED: Levofloxacin 750mg tab ORAL ONE (20:30)
[2018-09-06] MEDS ORDERED: LEVAQUIN750 MG ORAL (20:37)
[2018-09-06 21:16] VITALS: BP 140/88
[2018-09-06 21:17] VITALS: BP 100/76
--- NOTE | 2018-09-06 21:17 | NUR ---
ED Nurse Note: Pt cleared by health care Provider for discharge. DC instructions/prescription was given and explained to pt and verbalized understanding of teachings. All medical deviecs such as ID band removed. Pt is AAO x4, ambulatory and left with all personal belongings.
== END 2018-09-06 21:18 | disposition home or self-care (01) ==
LOC: EMR 19:40
DX: J32.9 Chronic sinusitis, unspecified (principal); R50.9 Fever, unspecified; J45.909 Unspecified asthma, uncomplicated; Z88.0 Allergy status to penicillin; Z88.1 Allergy status to other antibiotic agents
CPT/HCPCS: 99282